=== PATIENT | male | born 1995 | race Caucasian/White ===

== ENCOUNTER 2024-10-24 16:45 | Emergency (ER) | payer SELFPAY ==
[~2024-10-24] VITALS: Ht 170.2 cm; Wt 56.6 kg
[2024-10-24 16:55] VITALS: O2SAT 98
[2024-10-24] MEDS: IBUPROFEN 600MG TABLET PO ONE (18:43)
[2024-10-24 19:42] LABS: HEMOGLOBIN. 15.4 g/dL (14.0-18.0); MEAN CORPUSCULAR HEMOGLOBIN 31.3 pg (28.0-32.0); MEAN CORPUSCULAR HGB CONC 34.3 g/dL (31.0-37.0); MEAN CORPUSCULAR VOLUME 91.4 fL (80.0-94.0); MEAN PLATELET VOLUME 9.4 fl (7.4-10.4); PLATELET 244 x1000/uL (130-400); RED BLOOD CELL COUNT 4.92 mill/uL (4.7-6.1); RED CELL DISTRIBUTION WIDTH 13.8 % (11.6-14.6); WHITE BLOOD COUNT 14.1 x1000/uL (4.5-11.0)
[2024-10-24 19:43] LABS: CHLORIDE 102 mEq/L (98-107); POTASSIUM 3.6 mEq/L (3.5-5.1); SODIUM 137 mEq/L (136-145)
[2024-10-24 19:44] LABS: CARBON DIOXIDE 23 mEq/L (21-32)
[2024-10-24 19:45] LABS: CALCIUM 9.5 mg/dL (8.7-10.4)
[2024-10-24 19:48] LABS: DIFFERENTIAL COMMENT 1
[2024-10-24 19:49] LABS: CREATININE 1.1 mg/dL (0.6-1.3); GLUCOSE 124 mg/dL (70-105); UREA NITROGEN BLOOD 13 mg/dL (9-23)
[2024-10-24 20:30] LABS: PLATELET ESTIMATE NORMAL
[2024-10-24 21:26] LABS: CLARITY URINE TURBID (CLEAR); COLOR URINE YELLOW (YELLOW); GLUCOSE URINE NEGATIVE (NEGATIVE); KETONES URINE 1+ (NEGATIVE); LEUKOCYTE ESTERASE URINE NEGATIVE (NEGATIVE); NITRITE URINE NEGATIVE (NEGATIVE); OCCULT BLOOD URINE NEGATIVE (NEGATIVE); PH URINE 7.5 (4.5-8.0); PROTEIN URINE TRACE (NEGATIVE); SPECIFIC GRAVITY URINE 1.025 (1.005-1.030)
[2024-10-24 21:39] LABS: AMORPHOUS SEDIMENT URINE 2+ /lpf; BACTERIA URINE 2+; RBC URINE 0-2 /hpf (0-2); SQUAMOUS EPITHELIAL CELL URINE FEW /lpf (RARE/1+); WBC URINE NONE SEEN /hpf (0-2)
[2024-10-24] MEDS ORDERED: IBUP-2029 MT (22:13)
[2024-10-24] MEDS ORDERED: ONDA4TAB50 MT (22:13)
[2024-10-24] MEDS ORDERED: TAMS-11 MT (22:13)
[2024-10-24 23:13] VITALS: BP 133/79; PULSE 72; RESP 19; TEMP 36.72516; O2SAT 98
== END 2024-10-24 23:15 | disposition home or self-care (01) ==
LOC: ER 16:45
DX: N23 Unspecified renal colic (principal)
CPT/HCPCS: 36415; 74176; 80048; 81003; 85025; 99284